=== PATIENT | male | born 1955 | race Caucasian/White ===

== ENCOUNTER 2018-09-14 21:54 | Emergency (ER) | payer MEDICAID ==
[~2018-09-14] VITALS: Ht 172.7 cm; Wt 56.8 kg
[~2018-09-14 21:54] MED LIST: INSULIN SQ; LEVO500 PO
[2018-09-14 22:28] LABS: GLUCOSE,POINT OF CARE 499 MG/DL (70-110)
[2018-09-14] MEDS ORDERED: INSLAN SQ (22:31)
[2018-09-14] MEDS ORDERED: GABA-531 PO (22:31)
[2018-09-14] MEDS ORDERED: ATOR20TA86 PO (22:31)
[2018-09-14] MEDS ORDERED: INSREG SQ (22:31)
[2018-09-14] MEDS ORDERED: FINA5TAB41 PO (22:31)
[2018-09-14] MEDS ORDERED: TAMS-1 PO (22:31)
[2018-09-14] MEDS ORDERED: LISI-662 PO (22:31)
[2018-09-14] MEDS ORDERED: SODIUM CHLORIDE 0.9% 1,000 ML IV ONE (23:00)
[2018-09-14 23:11] LABS: BASOPHILS % (AUTO) 1.2 % (0.0-2.0); EOSINOPHILS % (AUTO) 1.3 % (1.0-6.0); HEMATOCRIT 34.2 % (41-53); HEMOGLOBIN 11.3 g/dL (13.5-17.5); LYMPHOCYTES # (AUTO) 2.1 K/uL (1.0-4.8); LYMPHOCYTES % (AUTO) 22.1 % (22.0-44.0); MEAN CORPUSCULAR HEMOGLOBIN 28.9 pg (26.0-34.0); MEAN CORPUSCULAR HGB CONC 33.1 G/dL (31.0-37.0); MEAN CORPUSCULAR VOLUME 87 fL (80-100); MONOCYTES # (AUTO) 0.7 K/uL (0.1-1.0); MONOCYTES % (AUTO) 7.1 % (2.0-9.0); NEUTROPHILS # (AUTO) 6.4 K/uL (1.8-7.7); NEUTROPHILS % (AUTO) 68.3 % (40.0-70.0); PLATELET COUNT (AUTO) 406 K/uL (150-450); RED BLOOD CELL COUNT(AUTO) 3.92 MIL/uL (4.50-5.90); RED CELL DISTRIBUTION WIDTH 15.3 % (11.5-14.5)
[2018-09-14 23:29] LABS: ALANINE AMINOTRANSFERASE 39 U/L (12-78); ALBUMIN 2.8 g/dL (3.4-5.0); ALKALINE PHOSPHATASE 332 U/L (46-116); ANION GAP 9 mmol/L (8-16); ASPARTATE AMINOTRANSFERASE 20 U/L (15-37); BILIRUBIN,TOTAL 0.3 mg/dL (0.1-1.0); CALCIUM, TOTAL 8.8 mg/dL (8.8-10.5); CARBON DIOXIDE 24 mmol/L (22-29); CHLORIDE 102 mmol/L (98-107); CREATININE 1.07 mg/dL (0.60-1.30); GLOMERULAR FILTR. RATE CALC > 60 mL/min (>60); POTASSIUM 4.2 mmol/L (3.5-5.1); SODIUM SERUM 135 mmol/L (136-145); UREA NITROGEN, BLOOD 20 mg/dL (7-18)
[2018-09-14 23:30] LABS: GLUCOSE,RANDOM 461 mg/dL (70-110)
[2018-09-15] MEDS ORDERED: INSULIN REGULAR, HUMAN 100 UNITS/ML IVP ONE (00:15)
[2018-09-15 00:19] LABS: APPEARANCE,URINE CLOUDY (CLEAR); BILIRUBIN,URINE NEGATIVE (NEGATIVE); GLUCOSE, URINE (UA) >=1000 mg/dL (NEGATIVE); KETONES,URINE NEGATIVE (NEGATIVE); LEUKOCYTE ESTERASE ,URINE MODERATE (NEGATIVE); NITRATE,URINE NEGATIVE (NEGATIVE); OCCULT BLOOD,URINE SMALL (NEGATIVE); PH,URINE 6.5 (5.0-8.0); PROTEIN,URINE POS 1+ (NEGATIVE); UROBILINOGEN,URINE 0.2 mg/dL (<=1.0)
[2018-09-15 00:25] LABS: BACTERIA,URINE None Seen /HPF (None Seen); SQUAMOUS EPITHELIAL CELL,UR None Seen /LPF (None Seen); WBC,URINE >100 /HPF (0-5)
[2018-09-15 00:49] LABS: GLUCOSE,POINT OF CARE 341 MG/DL (70-110)
[2018-09-15 00:59] VITALS: BP 132/83
== END 2018-09-15 01:30 | disposition home or self-care (01) ==
LOC: EMS 21:56
DX: T83.091A Other mechanical complication of indwelling urethral catheter, initial encounter (principal); E11.65 Type 2 diabetes mellitus with hyperglycemia; F17.210 Nicotine dependence, cigarettes, uncomplicated; F15.90 Other stimulant use, unspecified, uncomplicated; Z79.899 Other long term (current) drug therapy; Y73.2 Prosthetic and other implants, materials and accessory gastroenterology and urology devices associated with adverse incidents
CPT/HCPCS: 36415; 80053; 81001; 82962; 85025; 87077; 87086; 96361; 96374; 99283; J1815; J7030

== ENCOUNTER 2018-10-15 20:32 | Inpatient (IN) | payer MEDICAID ==
[~2018-10-15] VITALS: Ht 172.7 cm; Wt 61.3 kg
[~2018-10-15 20:32] MED LIST changes: +ATOR20TA86 PO; +FINA5TAB41 PO; +GABA-531 PO; +INSLAN SQ; +INSREG SQ; -INSULIN SQ; -LEVO500 PO; +LISI-662 PO; +TAMS-1 PO
[2018-10-15 21:44] LABS: GLUCOSE,POINT OF CARE 513 MG/DL (70-110)
[2018-10-15 22:05] LABS: BASOPHILS % (AUTO) 0.4 % (0.0-2.0); EOSINOPHILS % (AUTO) 0 % (1.0-6.0); HEMATOCRIT 46.4 % (41-53); HEMOGLOBIN 14.7 g/dL (13.5-17.5); LYMPHOCYTES # (AUTO) 0.9 K/uL (1.0-4.8); LYMPHOCYTES % (AUTO) 4.9 % (22.0-44.0); MEAN CORPUSCULAR HEMOGLOBIN 28.8 pg (26.0-34.0); MEAN CORPUSCULAR HGB CONC 31.6 G/dL (31.0-37.0); MEAN CORPUSCULAR VOLUME 91 fL (80-100); MONOCYTES # (AUTO) 1.2 K/uL (0.1-1.0); NEUTROPHILS # (AUTO) 15.3 K/uL (1.8-7.7); PLATELET COUNT (AUTO) 226 K/uL (150-450); RED BLOOD CELL COUNT(AUTO) 5.09 MIL/uL (4.50-5.90); RED CELL DISTRIBUTION WIDTH 14.8 % (11.5-14.5)
[2018-10-15 22:12] LABS: NEUTROPHILS % (AUTO) 87.7 % (40.0-70.0)
[2018-10-15] MEDS ORDERED: INSULIN REGULAR, HUMAN 100 UNITS/ML IVP ONE (22:15)
[2018-10-15] MEDS ORDERED: SODIUM CHLORIDE 0.9% 1,000 ML IV ONE ×2 (22:15→23:30)
[2018-10-15 22:18] LABS: INR 0.9 (0.9-1.1); PROTHROMBIN TIME 9.7 SEC (9.4-11.6)
[2018-10-15 22:32] LABS: B-TYPE NATRIURETIC PEPTIDE 108 pg/mL (0-100)
[2018-10-15 22:33] LABS: ACETONE,BLOOD NEGATIVE (NEGATIVE)
[2018-10-15 22:36] LABS: APPEARANCE,URINE CLOUDY (CLEAR); BILIRUBIN,URINE NEGATIVE (NEGATIVE); GLUCOSE, URINE (UA) >=1000 mg/dL (NEGATIVE); KETONES,URINE NEGATIVE (NEGATIVE); LEUKOCYTE ESTERASE ,URINE SMALL (NEGATIVE); NITRATE,URINE POSITIVE (NEGATIVE); OCCULT BLOOD,URINE MODERATE (NEGATIVE); PH,URINE 6.5 (5.0-8.0); PROTEIN,URINE SEE CONFIRM (NEGATIVE); UROBILINOGEN,URINE 0.2 mg/dL (<=1.0)
[2018-10-15 22:37] LABS: PLATELET MORPHOLOGY COMMENT NORMAL
[2018-10-15 22:41] LABS: SULFOSALICYLIC ACID,URINE 4+ (Negative)
[2018-10-15 22:42] LABS: ALANINE AMINOTRANSFERASE 16 U/L (12-78); ALBUMIN 2.8 g/dL (3.4-5.0); ALKALINE PHOSPHATASE 154 U/L (46-116); ANION GAP 11 mmol/L (8-16); ASPARTATE AMINOTRANSFERASE 11 U/L (15-37); BILIRUBIN,TOTAL 0.8 mg/dL (0.1-1.0); CALCIUM, TOTAL 9.8 mg/dL (8.8-10.5); CARBON DIOXIDE 26 mmol/L (22-29); CHLORIDE 100 mmol/L (98-107); CREATINE KINASE, TOTAL ONLY 77 U/L (39-308); CREATININE 1.63 mg/dL (0.60-1.30); POTASSIUM 4.9 mmol/L (3.5-5.1); SODIUM SERUM 137 mmol/L (136-145); TOTAL PROTEIN, SERUM 7.9 g/dL (6.4-8.2)
[2018-10-15 22:42] LABS: BACTERIA,URINE Rare /HPF (None Seen); SQUAMOUS EPITHELIAL CELL,UR None Seen /LPF (None Seen); WBC,URINE >100 /HPF (0-5); YEAST,URINE Few /HPF (None Seen)
[2018-10-15 22:46] LABS: GLUCOSE,RANDOM 528 mg/dL (70-110)
[2018-10-15 22:53] LABS: UREA NITROGEN, BLOOD 27 mg/dL (7-18)
[2018-10-15 23:03] LABS: LACTIC ACID 2.4 mmol/L (0.4-2.0)
[2018-10-15] MEDS ORDERED: CefTRIAXone 1 GM/DEXTROSE 50 ML IV ONE (23:30)
[2018-10-16] MEDS ORDERED: DEXTROSE 50%-WATER 25 GM/50 ML SYRINGE IVP PRN
[2018-10-16] MEDS ORDERED: OxyCODONE HCL/ACETAMINOPHEN 5-325 MG TABLET PO PRN
[2018-10-16] MEDS ORDERED: 0.9% SODIUM CHLORIDE 10 ML SYRINGE IVP PRN
[2018-10-16] MEDS ORDERED: ONDANSETRON HCL 4 MG/2 ML VIAL IVP PRN
[2018-10-16 00:15] LABS: GLUCOSE,POINT OF CARE 407 MG/DL (70-110)
[2018-10-16] MEDS: INSULIN LISPRO 100 UNITS/ML SQ PRN ×4 (00:55→20:50)
[2018-10-16] MEDS: DOCUSATE SODIUM 100 MG CAPSULE PO SCH ×3 (01:49→20:44)
[2018-10-16] MEDS: OxyCODONE HCL/ACETAMINOPHEN 5-325 MG TABLET PO PRN (01:49)
[2018-10-16 01:52] VITALS: BP 102/60
[2018-10-16 06:02] LABS: BASOPHILS % (AUTO) 0.3 % (0.0-2.0); EOSINOPHILS % (AUTO) 0 % (1.0-6.0); HEMATOCRIT 38.1 % (41-53); HEMOGLOBIN 12.1 g/dL (13.5-17.5); LYMPHOCYTES # (AUTO) 1.9 K/uL (1.0-4.8); LYMPHOCYTES % (AUTO) 11.9 % (22.0-44.0); MEAN CORPUSCULAR HEMOGLOBIN 28.7 pg (26.0-34.0); MEAN CORPUSCULAR HGB CONC 31.7 G/dL (31.0-37.0); MEAN CORPUSCULAR VOLUME 91 fL (80-100); MONOCYTES # (AUTO) 1.5 K/uL (0.1-1.0); MONOCYTES % (AUTO) 9.3 % (2.0-9.0); NEUTROPHILS # (AUTO) 12.7 K/uL (1.8-7.7); NEUTROPHILS % (AUTO) 78.5 % (40.0-70.0); PLATELET COUNT (AUTO) 178 K/uL (150-450)
[2018-10-16 06:25] LABS: CALCIUM, TOTAL 8.7 mg/dL (8.8-10.5); CREATININE 1.29 mg/dL (0.60-1.30)
[2018-10-16 06:40] VITALS: BP 92/59
[2018-10-16] MEDS ORDERED: ACETAMINOPHEN 650 MG RECTAL SUPPOSITORY PR PRN (08:30)
[2018-10-16] MEDS: FINASTERIDE 5 MG TABLET PO SCH (09:00)
[2018-10-16] MEDS ORDERED: LISINOPRIL 20 MG TABLET PO SCH (09:00)
[2018-10-16] MEDS ORDERED: FAMOTIDINE 10 MG/ML 2 ML VIAL IVP SCH (09:00)
[2018-10-16] MEDS: ATORVASTATIN CALCIUM 20 MG TABLET PO SCH (09:00)
[2018-10-16] MEDS: TAMSULOSIN HCL 0.4 MG CAPSULE PO SCH (09:00)
[2018-10-16 09:10] LABS: GLUCOMETER DEV NAME(LOC) 5S.1; GLUCOSE,POINT OF CARE 221 MG/DL (70-110)
[2018-10-16 09:10] LABS: GLUCOMETER DEV NAME(LOC) 5S.1; GLUCOSE,POINT OF CARE 362 MG/DL (70-110)
[2018-10-16 09:56] VITALS: BP 108/65
[2018-10-16] MEDS ORDERED: SODIUM CHLORIDE 0.9% 1,000 ML IV ONE (11:15)
[2018-10-16] MEDS: MULTIVITAMINS WITH MINERALS, THERAPEUTIC TABLET PO SCH (11:36)
[2018-10-16 11:51] VITALS: BP 139/65
[2018-10-16 16:08] VITALS: BP 90/55
[2018-10-16] MEDS ORDERED: INSULIN LISPRO 100 UNITS/ML SQ ONE ×2 (17:30→20:45)
[2018-10-16 17:40] LABS: GLUCOMETER DEV NAME(LOC) 5N.2; GLUCOSE,POINT OF CARE 226 MG/DL (70-110)
[2018-10-16 17:41] LABS: GLUCOMETER DEV NAME(LOC) 5N.2; GLUCOSE,POINT OF CARE 502 MG/DL (70-110)
[2018-10-16 19:37] VITALS: BP 116/74
[2018-10-16] MEDS: HEPARIN SODIUM,PORCINE 5,000 UNITS/ML VIAL SQ SCH (20:44)
[2018-10-16] MEDS: INSULIN GLARGINE,HUM.REC.ANLOG 100 UNITS/ML SQ SCH (20:49)
[2018-10-16] MEDS ORDERED: INSULIN GLARGINE,HUM.REC.ANLOG 100 UNITS/ML SQ SCH (21:00)
[2018-10-16] MEDS: CefTRIAXone 1 GM/DEXTROSE 50 ML IV SCH (22:21)
[2018-10-17] VITALS (7 sets, daily range): BP systolic 128–149; BP diastolic 73–89
[2018-10-17] MEDS: ACETAMINOPHEN 325 MG TABLET PO PRN ×2 (00:04→22:43)
[2018-10-17 03:24] LABS: GLUCOMETER DEV NAME(LOC) 5S.1; GLUCOSE,POINT OF CARE 490 MG/DL (70-110)
[2018-10-17] MEDS: INSULIN LISPRO 100 UNITS/ML SQ PRN ×4 (06:09→20:18)
[2018-10-17] MEDS: DOCUSATE SODIUM 100 MG CAPSULE PO SCH ×2 (09:16→20:10)
[2018-10-17] MEDS: ATORVASTATIN CALCIUM 20 MG TABLET PO SCH (09:16)
[2018-10-17] MEDS: HEPARIN SODIUM,PORCINE 5,000 UNITS/ML VIAL SQ SCH ×2 (09:16→20:12)
[2018-10-17] MEDS: FINASTERIDE 5 MG TABLET PO SCH (09:16)
[2018-10-17] MEDS: MULTIVITAMINS WITH MINERALS, THERAPEUTIC TABLET PO SCH (09:16)
[2018-10-17] MEDS: TAMSULOSIN HCL 0.4 MG CAPSULE PO SCH (09:16)
[2018-10-17] MEDS: INSULIN GLARGINE,HUM.REC.ANLOG 100 UNITS/ML SQ SCH ×2 (09:18→20:18)
[2018-10-17] MEDS: INSULIN LISPRO 100 UNITS/ML SQ SCH ×2 (12:18→17:54)
[2018-10-17 13:25] LABS: GLUCOMETER DEV NAME(LOC) 5S.1; GLUCOSE,POINT OF CARE 255 MG/DL (70-110)
[2018-10-17 19:54] LABS: GLUCOMETER DEV NAME(LOC) 5S.2A; GLUCOSE,POINT OF CARE 447 MG/DL (70-110)
[2018-10-17 19:54] LABS: GLUCOMETER DEV NAME(LOC) 5S.1; GLUCOSE,POINT OF CARE 316 MG/DL (70-110)
[2018-10-17 19:54] LABS: GLUCOMETER DEV NAME(LOC) 5S.2A; GLUCOSE,POINT OF CARE 264 MG/DL (70-110)
[2018-10-17 21:30] LABS: GLUCOMETER DEV NAME(LOC) 5S.2A; GLUCOSE,POINT OF CARE 202 MG/DL (70-110)
[2018-10-17] MEDS: CefTRIAXone 1 GM/DEXTROSE 50 ML IV SCH (22:43)
[2018-10-18 04:38] VITALS: BP 121/71
[2018-10-18] MEDS: ACETAMINOPHEN 325 MG TABLET PO PRN ×3 (05:18→20:53)
[2018-10-18 05:44] LABS: BASOPHILS % (AUTO) 0.3 % (0.0-2.0); EOSINOPHILS % (AUTO) 0.3 % (1.0-6.0); HEMATOCRIT 35.8 % (41-53); HEMOGLOBIN 11.7 g/dL (13.5-17.5); LYMPHOCYTES % (AUTO) 12.7 % (22.0-44.0); MEAN CORPUSCULAR HGB CONC 32.7 G/dL (31.0-37.0); MEAN CORPUSCULAR VOLUME 89 fL (80-100); MONOCYTES # (AUTO) 0.5 K/uL (0.1-1.0); MONOCYTES % (AUTO) 6.5 % (2.0-9.0); NEUTROPHILS # (AUTO) 6.6 K/uL (1.8-7.7); NEUTROPHILS % (AUTO) 80.2 % (40.0-70.0); PLATELET COUNT (AUTO) 162 K/uL (150-450); RED BLOOD CELL COUNT(AUTO) 4.03 MIL/uL (4.50-5.90); RED CELL DISTRIBUTION WIDTH 14.6 % (11.5-14.5)
[2018-10-18 06:05] LABS: ANION GAP 8 mmol/L (8-16); CALCIUM, TOTAL 8.6 mg/dL (8.8-10.5); CARBON DIOXIDE 26 mmol/L (22-29); CHLORIDE 98 mmol/L (98-107); CREATININE 1.04 mg/dL (0.60-1.30); GLOMERULAR FILTR. RATE CALC > 60 mL/min (>60); GLUCOSE,RANDOM 248 mg/dL (70-110); POTASSIUM 4.1 mmol/L (3.5-5.1); SODIUM SERUM 132 mmol/L (136-145); UREA NITROGEN, BLOOD 16 mg/dL (7-18)
[2018-10-18 06:40] LABS: GLUCOMETER DEV NAME(LOC) 5S.1; GLUCOSE,POINT OF CARE 251 MG/DL (70-110)
[2018-10-18] MEDS: INSULIN LISPRO 100 UNITS/ML SQ PRN ×4 (06:42→21:00)
[2018-10-18 07:25] LABS: HEMOGLOBIN A1C 13.6 % (4.5-6.2)
[2018-10-18 08:24] VITALS: BP 144/94
[2018-10-18] MEDS: DOCUSATE SODIUM 100 MG CAPSULE PO SCH ×2 (08:54→20:53)
[2018-10-18] MEDS: INSULIN LISPRO 100 UNITS/ML SQ SCH ×3 (08:55→17:25)
[2018-10-18] MEDS: INSULIN GLARGINE,HUM.REC.ANLOG 100 UNITS/ML SQ SCH ×2 (08:57→20:59)
[2018-10-18] MEDS: HEPARIN SODIUM,PORCINE 5,000 UNITS/ML VIAL SQ SCH ×2 (08:58→20:53)
[2018-10-18] MEDS: MULTIVITAMINS WITH MINERALS, THERAPEUTIC TABLET PO SCH (08:58)
[2018-10-18] MEDS: ATORVASTATIN CALCIUM 20 MG TABLET PO SCH (08:59)
[2018-10-18] MEDS: TAMSULOSIN HCL 0.4 MG CAPSULE PO SCH (08:59)
[2018-10-18] MEDS: FINASTERIDE 5 MG TABLET PO SCH (09:03)
[2018-10-18 13:34] LABS: GLUCOMETER DEV NAME(LOC) 5S.1; GLUCOSE,POINT OF CARE 239 MG/DL (70-110)
[2018-10-18 13:34] LABS: GLUCOMETER DEV NAME(LOC) 5S.1; GLUCOSE,POINT OF CARE 350 MG/DL (70-110)
[2018-10-18 15:44] VITALS: BP 139/57
[2018-10-18 18:54] LABS: GLUCOMETER DEV NAME(LOC) 5S.1; GLUCOSE,POINT OF CARE 251 MG/DL (70-110)
[2018-10-18 21:34] VITALS: BP 132/76
[2018-10-18] MEDS: CefTRIAXone 1 GM/DEXTROSE 50 ML IV SCH (22:51)
[2018-10-18 23:40] VITALS: BP 135/79
[2018-10-19 01:19] LABS: GLUCOMETER DEV NAME(LOC) 5S.1; GLUCOSE,POINT OF CARE 325 MG/DL (70-110)
[2018-10-19] MEDS: OxyCODONE HCL/ACETAMINOPHEN 5-325 MG TABLET PO PRN ×3 (02:40→23:28)
[2018-10-19 04:38] VITALS: BP 130/77
[2018-10-19] MEDS: INSULIN LISPRO 100 UNITS/ML SQ PRN ×4 (06:24→20:52)
[2018-10-19 07:32] VITALS: BP 135/77
[2018-10-19] MEDS: INSULIN LISPRO 100 UNITS/ML SQ SCH ×3 (09:02→18:15)
[2018-10-19] MEDS: INSULIN GLARGINE,HUM.REC.ANLOG 100 UNITS/ML SQ SCH ×2 (09:03→20:51)
[2018-10-19] MEDS: FINASTERIDE 5 MG TABLET PO SCH (09:04)
[2018-10-19] MEDS: DOCUSATE SODIUM 100 MG CAPSULE PO SCH ×2 (09:04→20:45)
[2018-10-19] MEDS: MULTIVITAMINS WITH MINERALS, THERAPEUTIC TABLET PO SCH (09:04)
[2018-10-19] MEDS: TAMSULOSIN HCL 0.4 MG CAPSULE PO SCH (09:04)
[2018-10-19] MEDS: ATORVASTATIN CALCIUM 20 MG TABLET PO SCH (09:05)
[2018-10-19] MEDS: HEPARIN SODIUM,PORCINE 5,000 UNITS/ML VIAL SQ SCH ×2 (09:05→20:45)
[2018-10-19 11:12] VITALS: BP 138/78
[2018-10-19 16:00] VITALS: BP 139/72
[2018-10-19 19:28] VITALS: BP 141/72
[2018-10-19 23:27] VITALS: BP 145/85
[2018-10-19] MEDS: CefTRIAXone 1 GM/DEXTROSE 50 ML IV SCH (23:27)
[2018-10-20 04:43] VITALS: BP 134/75
[2018-10-20] MEDS: INSULIN LISPRO 100 UNITS/ML SQ PRN ×4 (06:30→21:24)
[2018-10-20] MEDS: INSULIN LISPRO 100 UNITS/ML SQ SCH ×3 (08:00→18:13)
[2018-10-20 08:10] LABS: GLUCOMETER DEV NAME(LOC) 5S.1; GLUCOSE,POINT OF CARE 168 MG/DL (70-110)
[2018-10-20 08:36] VITALS: BP 142/85
[2018-10-20] MEDS: FINASTERIDE 5 MG TABLET PO SCH (09:08)
[2018-10-20] MEDS: HEPARIN SODIUM,PORCINE 5,000 UNITS/ML VIAL SQ SCH ×2 (09:08→20:15)
[2018-10-20] MEDS: DOCUSATE SODIUM 100 MG CAPSULE PO SCH ×2 (09:09→20:16)
[2018-10-20] MEDS: TAMSULOSIN HCL 0.4 MG CAPSULE PO SCH (09:09)
[2018-10-20] MEDS: MULTIVITAMINS WITH MINERALS, THERAPEUTIC TABLET PO SCH (09:09)
[2018-10-20] MEDS: ATORVASTATIN CALCIUM 20 MG TABLET PO SCH (09:09)
[2018-10-20] MEDS: INSULIN GLARGINE,HUM.REC.ANLOG 100 UNITS/ML SQ SCH ×2 (09:16→21:25)
[2018-10-20] MEDS: OxyCODONE HCL/ACETAMINOPHEN 5-325 MG TABLET PO PRN ×2 (09:18→19:00)
[2018-10-20 11:27] VITALS: BP 122/70
[2018-10-20] MEDS: NICOTINE 21 MG/24 HOUR PATCH TD SCH (13:53)
[2018-10-20] MEDS ORDERED: IOVERSOL 320 MG/ML 100 ML VIAL ONE (14:05)
[2018-10-20] MEDS ORDERED: SODIUM CHLORIDE 0.9% 100 ML ONE (14:05)
[2018-10-20] MEDS ORDERED: BARIUM SULFATE 0.1% SUSPENSION 450 ML BOTTLE ONE (14:05)
[2018-10-20 15:10] LABS: GLUCOMETER DEV NAME(LOC) 5S.1; GLUCOSE,POINT OF CARE 242 MG/DL (70-110)
[2018-10-20 15:44] VITALS: BP 143/88
[2018-10-20 17:20] LABS: GLUCOMETER DEV NAME(LOC) 5N.1; GLUCOSE,POINT OF CARE 144 MG/DL (70-110)
[2018-10-20 17:45] LABS: GLUCOMETER DEV NAME(LOC) 5S.2A; GLUCOSE,POINT OF CARE 151 MG/DL (70-110)
[2018-10-20 17:45] LABS: GLUCOMETER DEV NAME(LOC) 5S.2A; GLUCOSE,POINT OF CARE 179 MG/DL (70-110)
[2018-10-20 17:45] LABS: GLUCOMETER DEV NAME(LOC) 5S.2A; GLUCOSE,POINT OF CARE 343 MG/DL (70-110)
[2018-10-20 17:45] LABS: GLUCOMETER DEV NAME(LOC) 5S.2A; GLUCOSE,POINT OF CARE 187 MG/DL (70-110)
[2018-10-20 17:45] LABS: GLUCOMETER DEV NAME(LOC) 5S.2A; GLUCOSE,POINT OF CARE 170 MG/DL (70-110)
[2018-10-20 17:45] LABS: GLUCOMETER DEV NAME(LOC) 5S.2A; GLUCOSE,POINT OF CARE 141 MG/DL (70-110)
[2018-10-20 19:32] VITALS: BP 139/81
[2018-10-20] MEDS: CefTRIAXone SODIUM 2 GM in DEXTROSE 5%-WATER 50 ML IV SCH (20:16)
[2018-10-20] MEDS: AMPICILLIN SODIUM 2 GM/NS 100 ML IV SCH (20:16)
[2018-10-20] MEDS: SULFAMETHOX/TRIMETH DS 800-160 MG/TABLET PO SCH (20:16)
[2018-10-20] MEDS: ACETAMINOPHEN 325 MG TABLET PO PRN (20:16)
[2018-10-21] VITALS (7 sets, daily range): BP systolic 104–140; BP diastolic 56–80
[2018-10-21] MEDS: AMPICILLIN SODIUM 2 GM/NS 100 ML IV SCH ×7 (00:04→23:17)
[2018-10-21] MEDS: OxyCODONE HCL/ACETAMINOPHEN 5-325 MG TABLET PO PRN ×3 (00:13→17:35)
[2018-10-21] MEDS: INSULIN LISPRO 100 UNITS/ML SQ PRN ×4 (05:55→21:15)
[2018-10-21 06:05] LABS: GLUCOMETER DEV NAME(LOC) 5N.1; GLUCOSE,POINT OF CARE 198 MG/DL (70-110)
[2018-10-21] MEDS: INSULIN LISPRO 100 UNITS/ML SQ SCH ×3 (08:49→17:38)
[2018-10-21] MEDS: INSULIN GLARGINE,HUM.REC.ANLOG 100 UNITS/ML SQ SCH ×2 (08:50→21:16)
[2018-10-21] MEDS: NICOTINE 21 MG/24 HOUR PATCH TD SCH (09:00)
[2018-10-21] MEDS: HEPARIN SODIUM,PORCINE 5,000 UNITS/ML VIAL SQ SCH ×2 (09:12→20:27)
[2018-10-21] MEDS: SULFAMETHOX/TRIMETH DS 800-160 MG/TABLET PO SCH ×2 (09:12→20:28)
[2018-10-21] MEDS: FINASTERIDE 5 MG TABLET PO SCH (09:12)
[2018-10-21] MEDS: TAMSULOSIN HCL 0.4 MG CAPSULE PO SCH (09:12)
[2018-10-21] MEDS: DOCUSATE SODIUM 100 MG CAPSULE PO SCH ×2 (09:13→20:28)
[2018-10-21] MEDS: ATORVASTATIN CALCIUM 20 MG TABLET PO SCH (09:13)
[2018-10-21] MEDS: MULTIVITAMINS WITH MINERALS, THERAPEUTIC TABLET PO SCH (09:13)
[2018-10-21] MEDS: CefTRIAXone SODIUM 2 GM in DEXTROSE 5%-WATER 50 ML IV SCH ×2 (09:24→20:28)
[2018-10-21 15:30] LABS: GLUCOMETER DEV NAME(LOC) 5S.1; GLUCOSE,POINT OF CARE 247 MG/DL (70-110)
[2018-10-21 17:15] LABS: GLUCOMETER DEV NAME(LOC) 5N.1; GLUCOSE,POINT OF CARE 147 MG/DL (70-110)
[2018-10-21 18:10] LABS: GLUCOMETER DEV NAME(LOC) 5N.1; GLUCOSE,POINT OF CARE 171 MG/DL (70-110)
[2018-10-21 23:14] LABS: GLUCOMETER DEV NAME(LOC) 5S.1; GLUCOSE,POINT OF CARE 143 MG/DL (70-110)
[2018-10-22] MEDS: OxyCODONE HCL/ACETAMINOPHEN 5-325 MG TABLET PO PRN ×2 (02:12→20:55)
[2018-10-22 04:05] VITALS: BP 111/66
[2018-10-22] MEDS ORDERED: SODIUM CHLORIDE 0.9% 250 ML IV ONE (04:42)
[2018-10-22] MEDS: AMPICILLIN SODIUM 2 GM/NS 100 ML IV SCH ×6 (04:45→23:57)
[2018-10-22] MEDS: INSULIN LISPRO 100 UNITS/ML SQ PRN ×2 (06:27→17:59)
[2018-10-22 07:59] VITALS: BP 114/63
[2018-10-22] MEDS: DOCUSATE SODIUM 100 MG CAPSULE PO SCH ×2 (08:17→20:44)
[2018-10-22] MEDS: MULTIVITAMINS WITH MINERALS, THERAPEUTIC TABLET PO SCH (08:17)
[2018-10-22] MEDS: ATORVASTATIN CALCIUM 20 MG TABLET PO SCH (08:17)
[2018-10-22] MEDS: SULFAMETHOX/TRIMETH DS 800-160 MG/TABLET PO SCH ×2 (08:17→20:48)
[2018-10-22] MEDS: TAMSULOSIN HCL 0.4 MG CAPSULE PO SCH (08:17)
[2018-10-22] MEDS: FINASTERIDE 5 MG TABLET PO SCH (08:18)
[2018-10-22] MEDS: NICOTINE 21 MG/24 HOUR PATCH TD SCH (08:18)
[2018-10-22] MEDS: HEPARIN SODIUM,PORCINE 5,000 UNITS/ML VIAL SQ SCH ×2 (08:19→20:44)
[2018-10-22] MEDS: INSULIN LISPRO 100 UNITS/ML SQ SCH ×3 (08:26→17:59)
[2018-10-22] MEDS: INSULIN GLARGINE,HUM.REC.ANLOG 100 UNITS/ML SQ SCH ×2 (08:26→21:00)
[2018-10-22] MEDS: CefTRIAXone SODIUM 2 GM in DEXTROSE 5%-WATER 50 ML IV SCH ×2 (09:45→22:35)
[2018-10-22 11:30] VITALS: BP 133/77
[2018-10-22 14:19] LABS: GLUCOMETER DEV NAME(LOC) 5N.1; GLUCOSE,POINT OF CARE 193 MG/DL (70-110)
[2018-10-22 16:14] VITALS: BP 132/72
[2018-10-22 20:05] LABS: GLUCOMETER DEV NAME(LOC) 5S.1; GLUCOSE,POINT OF CARE 191 MG/DL (70-110)
[2018-10-22 20:05] LABS: GLUCOMETER DEV NAME(LOC) 5S.1; GLUCOSE,POINT OF CARE 192 MG/DL (70-110)
[2018-10-22 20:29] VITALS: BP 136/71
[2018-10-23 00:04] VITALS: BP 137/74
[2018-10-23] MEDS: AMPICILLIN SODIUM 2 GM/NS 100 ML IV SCH ×6 (03:43→23:04)
[2018-10-23 04:18] VITALS: BP 135/79
[2018-10-23 05:37] LABS: BASOPHILS % (AUTO) 1.2 % (0.0-2.0); LYMPHOCYTES # (AUTO) 1.7 K/uL (1.0-4.8); LYMPHOCYTES % (AUTO) 28.6 % (22.0-44.0); MEAN CORPUSCULAR HEMOGLOBIN 28.9 pg (26.0-34.0); MEAN CORPUSCULAR HGB CONC 32.4 G/dL (31.0-37.0); MEAN CORPUSCULAR VOLUME 89 fL (80-100); MONOCYTES # (AUTO) 0.8 K/uL (0.1-1.0); MONOCYTES % (AUTO) 13.2 % (2.0-9.0); NEUTROPHILS # (AUTO) 3.3 K/uL (1.8-7.7); PLATELET COUNT (AUTO) 383 K/uL (150-450); RED BLOOD CELL COUNT(AUTO) 3.82 MIL/uL (4.50-5.90); RED CELL DISTRIBUTION WIDTH 14.7 % (11.5-14.5)
[2018-10-23 05:49] LABS: GLUCOMETER DEV NAME(LOC) 5S.1; GLUCOSE,POINT OF CARE 224 MG/DL (70-110)
[2018-10-23 06:00] LABS: GLUCOMETER DEV NAME(LOC) 5N.1; GLUCOSE,POINT OF CARE 283 MG/DL (70-110)
[2018-10-23 06:01] LABS: GLUCOMETER DEV NAME(LOC) 5N.1; GLUCOSE,POINT OF CARE 161 MG/DL (70-110)
[2018-10-23 06:20] LABS: INR 0.9 (0.9-1.1); PROTHROMBIN TIME 9.4 SEC (9.4-11.6)
[2018-10-23 06:25] LABS: ANION GAP 6 mmol/L (8-16); C-REACTIVE PROTEIN QUANT 3.06 mg/dL (0.00-0.30); CALCIUM, TOTAL 8.5 mg/dL (8.8-10.5); CARBON DIOXIDE 26 mmol/L (22-29); CHLORIDE 100 mmol/L (98-107); CREATININE 1.02 mg/dL (0.60-1.30); GLOMERULAR FILTR. RATE CALC > 60 mL/min (>60); GLUCOSE,RANDOM 225 mg/dL (70-110); POTASSIUM 5.1 mmol/L (3.5-5.1); SODIUM SERUM 132 mmol/L (136-145); UREA NITROGEN, BLOOD 17 mg/dL (7-18)
[2018-10-23 07:41] VITALS: BP 104/63
[2018-10-23 07:52] LABS: PHOSPHORUS 2.8 mg/dL (2.5-4.9)
[2018-10-23] MEDS: INSULIN LISPRO 100 UNITS/ML SQ SCH ×3 (08:00→18:03)
[2018-10-23 08:13] LABS: ERYTHROCYTE SEDIMENTATION RATE 100 MM/HR (0-15)
[2018-10-23] MEDS: TAMSULOSIN HCL 0.4 MG CAPSULE PO SCH (08:40)
[2018-10-23] MEDS: SULFAMETHOX/TRIMETH DS 800-160 MG/TABLET PO SCH ×2 (08:40→20:00)
[2018-10-23] MEDS: FINASTERIDE 5 MG TABLET PO SCH (08:40)
[2018-10-23] MEDS: ATORVASTATIN CALCIUM 20 MG TABLET PO SCH (08:41)
[2018-10-23] MEDS: DOCUSATE SODIUM 100 MG CAPSULE PO SCH ×2 (08:41→20:00)
[2018-10-23] MEDS: MULTIVITAMINS WITH MINERALS, THERAPEUTIC TABLET PO SCH (08:41)
[2018-10-23] MEDS: HEPARIN SODIUM,PORCINE 5,000 UNITS/ML VIAL SQ SCH ×2 (08:41→20:00)
[2018-10-23] MEDS: NICOTINE 21 MG/24 HOUR PATCH TD SCH (08:42)
[2018-10-23] MEDS: CefTRIAXone SODIUM 2 GM in DEXTROSE 5%-WATER 50 ML IV SCH ×2 (09:15→20:44)
[2018-10-23 11:30] VITALS: BP 112/66
[2018-10-23] MEDS: INSULIN GLARGINE,HUM.REC.ANLOG 100 UNITS/ML SQ SCH ×2 (11:58→20:44)
[2018-10-23 16:01] VITALS: BP 107/60
[2018-10-23] MEDS: INSULIN LISPRO 100 UNITS/ML SQ PRN (18:02)
[2018-10-23 19:34] VITALS: BP 108/74
[2018-10-23 19:40] LABS: GLUCOMETER DEV NAME(LOC) 5S.1; GLUCOSE,POINT OF CARE 228 MG/DL (70-110)
[2018-10-23 19:40] LABS: GLUCOMETER DEV NAME(LOC) 5S.1; GLUCOSE,POINT OF CARE 251 MG/DL (70-110)
[2018-10-23 19:40] LABS: GLUCOMETER DEV NAME(LOC) 5N.1; GLUCOSE,POINT OF CARE 326 MG/DL (70-110)
[2018-10-23] MEDS: OxyCODONE HCL/ACETAMINOPHEN 5-325 MG TABLET PO PRN (20:01)
[2018-10-24] VITALS (7 sets, daily range): BP systolic 109–135; BP diastolic 62–70
[2018-10-24 00:20] LABS: GLUCOMETER DEV NAME(LOC) 5N.1; GLUCOSE,POINT OF CARE 83 MG/DL (70-110)
[2018-10-24] MEDS: AMPICILLIN SODIUM 2 GM/NS 100 ML IV SCH ×6 (03:31→23:29)
[2018-10-24 06:05] LABS: GLUCOMETER DEV NAME(LOC) 5S.1; GLUCOSE,POINT OF CARE 270 MG/DL (70-110)
[2018-10-24] MEDS: INSULIN LISPRO 100 UNITS/ML SQ PRN ×3 (06:12→21:41)
[2018-10-24] MEDS: DOCUSATE SODIUM 100 MG CAPSULE PO SCH ×2 (08:12→20:39)
[2018-10-24] MEDS: TAMSULOSIN HCL 0.4 MG CAPSULE PO SCH (08:12)
[2018-10-24] MEDS: SULFAMETHOX/TRIMETH DS 800-160 MG/TABLET PO SCH ×2 (08:12→20:39)
[2018-10-24] MEDS: ATORVASTATIN CALCIUM 20 MG TABLET PO SCH (08:13)
[2018-10-24] MEDS: MULTIVITAMINS WITH MINERALS, THERAPEUTIC TABLET PO SCH (08:13)
[2018-10-24] MEDS: FINASTERIDE 5 MG TABLET PO SCH (08:13)
[2018-10-24] MEDS: HEPARIN SODIUM,PORCINE 5,000 UNITS/ML VIAL SQ SCH ×2 (08:14→20:39)
[2018-10-24] MEDS: NICOTINE 21 MG/24 HOUR PATCH TD SCH (08:15)
[2018-10-24] MEDS: INSULIN LISPRO 100 UNITS/ML SQ SCH ×3 (08:16→17:58)
[2018-10-24] MEDS: INSULIN GLARGINE,HUM.REC.ANLOG 100 UNITS/ML SQ SCH ×2 (08:17→21:40)
[2018-10-24] MEDS: OxyCODONE HCL/ACETAMINOPHEN 5-325 MG TABLET PO PRN ×2 (08:28→21:06)
[2018-10-24] MEDS: CefTRIAXone SODIUM 2 GM in DEXTROSE 5%-WATER 50 ML IV SCH ×2 (09:02→21:36)
[2018-10-24 13:00] LABS: GLUCOMETER DEV NAME(LOC) 5N.1; GLUCOSE,POINT OF CARE 244 MG/DL (70-110)
[2018-10-24 23:50] LABS: GLUCOMETER DEV NAME(LOC) 5S.1; GLUCOSE,POINT OF CARE 239 MG/DL (70-110)
[2018-10-24 23:50] LABS: GLUCOMETER DEV NAME(LOC) 5S.1; GLUCOSE,POINT OF CARE 124 MG/DL (70-110)
[2018-10-25] MEDS: AMPICILLIN SODIUM 2 GM/NS 100 ML IV SCH ×4 (03:13→15:03)
[2018-10-25 04:29] VITALS: BP 132/75
[2018-10-25 05:48] LABS: ANION GAP 10 mmol/L (8-16); CALCIUM, TOTAL 8.7 mg/dL (8.8-10.5); CARBON DIOXIDE 24 mmol/L (22-29); CHLORIDE 100 mmol/L (98-107); CREATININE 1.02 mg/dL (0.60-1.30); GLOMERULAR FILTR. RATE CALC > 60 mL/min (>60); GLUCOSE,RANDOM 138 mg/dL (70-110); POTASSIUM 4.9 mmol/L (3.5-5.1); SODIUM SERUM 134 mmol/L (136-145); UREA NITROGEN, BLOOD 23 mg/dL (7-18)
[2018-10-25] MEDS: INSULIN LISPRO 100 UNITS/ML SQ PRN (06:19)
[2018-10-25 07:43] VITALS: BP 113/72
[2018-10-25] MEDS: CefTRIAXone SODIUM 2 GM in DEXTROSE 5%-WATER 50 ML IV SCH (08:02)
[2018-10-25] MEDS: HEPARIN SODIUM,PORCINE 5,000 UNITS/ML VIAL SQ SCH (08:02)
[2018-10-25] MEDS: MULTIVITAMINS WITH MINERALS, THERAPEUTIC TABLET PO SCH (08:03)
[2018-10-25] MEDS: FINASTERIDE 5 MG TABLET PO SCH (08:03)
[2018-10-25] MEDS: TAMSULOSIN HCL 0.4 MG CAPSULE PO SCH (08:03)
[2018-10-25] MEDS: OxyCODONE HCL/ACETAMINOPHEN 5-325 MG TABLET PO PRN (08:03)
[2018-10-25] MEDS: DOCUSATE SODIUM 100 MG CAPSULE PO SCH (08:03)
[2018-10-25] MEDS: SULFAMETHOX/TRIMETH DS 800-160 MG/TABLET PO SCH (08:03)
[2018-10-25] MEDS: ATORVASTATIN CALCIUM 20 MG TABLET PO SCH (08:03)
[2018-10-25] MEDS: NICOTINE 21 MG/24 HOUR PATCH TD SCH (08:16)
[2018-10-25] MEDS: INSULIN GLARGINE,HUM.REC.ANLOG 100 UNITS/ML SQ SCH (08:16)
[2018-10-25] MEDS: INSULIN LISPRO 100 UNITS/ML SQ SCH ×2 (08:56→12:00)
[2018-10-25 09:50] LABS: GLUCOMETER DEV NAME(LOC) 5N.1; GLUCOSE,POINT OF CARE 116 MG/DL (70-110)
[2018-10-25 09:50] LABS: GLUCOMETER DEV NAME(LOC) 5N.1; GLUCOSE,POINT OF CARE 158 MG/DL (70-110)
[2018-10-25 09:50] LABS: GLUCOMETER DEV NAME(LOC) 5N.1; GLUCOSE,POINT OF CARE 195 MG/DL (70-110)
[2018-10-25 09:50] LABS: GLUCOMETER DEV NAME(LOC) 5N.1; GLUCOSE,POINT OF CARE 374 MG/DL (70-110)
[2018-10-25 10:54] VITALS: BP 118/66
[2018-10-25] MEDS ORDERED: INSLAN SQ (12:33)
[2018-10-25] MEDS ORDERED: SULF1TAB42 PO (12:36)
[2018-10-25] MEDS ORDERED: AMOX500T2 PO (12:37)
[2018-10-25 15:46] LABS: GLUCOMETER DEV NAME(LOC) 5S.1; GLUCOSE,POINT OF CARE 103 MG/DL (70-110)
== END 2018-10-25 15:48 | disposition home or self-care (01) | DRG 720 ==
LOC: EMS 20:34 → 5N 10-16 00:30 → 5S 10-20 16:06 → 5N 10-20 16:07 → 5S 10-20 17:21
PROVIDERS: ADMIT Internal Medicine; ATTEND Internal Medicine
DX: A41.81 Sepsis due to Enterococcus (principal); E43 Unspecified severe protein-calorie malnutrition; N15.1 Renal and perinephric abscess; N17.0 Acute kidney failure with tubular necrosis; G93.41 Metabolic encephalopathy; I47.2 Ventricular tachycardia; E86.0 Dehydration; N39.0 Urinary tract infection, site not specified; E11.65 Type 2 diabetes mellitus with hyperglycemia; R33.9 Retention of urine, unspecified; B96.1 Klebsiella pneumoniae [K. pneumoniae] as the cause of diseases classified elsewhere; N12 Tubulo-interstitial nephritis, not specified as acute or chronic; F17.200 Nicotine dependence, unspecified, uncomplicated; Z79.4 Long term (current) use of insulin; Z87.440 Personal history of urinary (tract) infections; Z91.19 Patient's noncompliance with other medical treatment and regimen
CPT/HCPCS: 74177; 83036; 83605; 83735; 84100; 85651; 86140; 87040; 87086; 87205; 93005; 93306; 97116; 97162; G0378; J0290; J0696; J1644; J1815; J2405; J3490; J7030; J7050; J7060